=== PATIENT | female | born 1995 | race Hispanic/Latino ===

== ENCOUNTER → 2017-03-06 | Outpatient (CLI) | payer OTHER ==
--- NOTE | 2017-03-06 15:17 | REP ---
RIGHT FIRST DIGIT, FOUR VIEWS: There is no evidence of an acute fracture, dislocation or intrinsic bone disease. IMPRESSION: No fracture or dislocation. Signed by Chauncey Pavon MD 03/06/2017 03:19 P
== END ==
LOC: M LRY 13:04
PROVIDERS: ATTEND Nurse Practitioner Family
DX: S69.91XA Unspecified injury of right wrist, hand and finger(s), initial encounter (principal); W18.30XA Fall on same level, unspecified, initial encounter; Y92.009 Unspecified place in unspecified non-institutional (private) residence as the place of occurrence of the external cause

== ENCOUNTER → 2018-01-27 | Outpatient (REF) | payer OTHER ==
[2018-01-27 19:29] LABS: HCG, SERUM QUANTITATIVE 788 MIU/ML
[2018-01-28 10:12] LABS: RUBELLA IgG QUALITATIVE IMMUNE (IMMUNE)
[2018-01-28 10:13] LABS: HBsAg Prenatal NEGATIVE (NEGATIVE)
[2018-01-28 10:40] LABS: HEPATITIS C VIRUS ABY INDEX 0.2 INDEX (<0.8)
[2018-01-28 10:41] LABS: HIV 1&2 SCREEN CENTAUR NEGATIVE (NEGATIVE)
== END ==
LOC: M LAB REF 16:19
DX: O36.80X0 Pregnancy with inconclusive fetal viability, not applicable or unspecified (principal); Z32.01 Encounter for pregnancy test, result positive

== ENCOUNTER → 2018-02-26 | Outpatient (REF) | payer OTHER ==
[2018-02-26 13:21] LABS: HEMATOCRIT 36.4 % (36.0-47.0); HEMOGLOBIN 12.6 g/dl (12.0-15.5); MEAN CORPUSCULAR HEMOGLOBIN 30.7 pg (27.0-33.0); MEAN CORPUSCULAR HGB CONC 34.6 g/dl (32.0-36.5); MEAN CORPUSCULAR VOLUME 88.6 fl (80.0-96.0); PLATELET COUNT, AUTOMATED 204 10^3/uL (150-450); RED BLOOD COUNT 4.11 10^6/uL (4.00-5.40); RED CELL DISTRIBUTION WIDTH 12.4 % (11.5-14.5); WHITE BLOOD COUNT 7.7 10^3/uL (4.0-10.0)
[2018-02-26 14:08] LABS: HCG, SERUM QUANTITATIVE 114739 MIU/ML
== END ==
LOC: M LAB REF 13:04
DX: Z34.01 Encounter for supervision of normal first pregnancy, first trimester (principal)

== ENCOUNTER → 2018-06-25 | Outpatient (CLI) | payer OTHER ==
[2018-06-25 11:26] LABS: HEMATOCRIT 34.1 % (36.0-47.0); HEMOGLOBIN 11.2 g/dl (12.0-15.5); MEAN CORPUSCULAR HEMOGLOBIN 30.5 pg (27.0-33.0); MEAN CORPUSCULAR HGB CONC 32.8 g/dl (32.0-36.5); MEAN CORPUSCULAR VOLUME 92.9 fl (80.0-96.0); PLATELET COUNT, AUTOMATED 235 10^3/uL (150-450); RED BLOOD COUNT 3.67 10^6/uL (4.00-5.40); WHITE BLOOD COUNT 10.5 10^3/uL (4.0-10.0)
== END ==
LOC: M LAB 09:47
PROVIDERS: ATTEND Obstetrics & Gynecology
DX: Z34.02 Encounter for supervision of normal first pregnancy, second trimester (principal); Z3A.00 Weeks of gestation of pregnancy not specified

== ENCOUNTER → 2018-09-09 | Outpatient (REF) | payer OTHER | LOC: M LAB REF 12:45 | PROVIDERS: ATTEND Obstetrics & Gynecology | DX: Z34.03 Encounter for supervision of normal first pregnancy, third trimester (principal); Z3A.00 Weeks of gestation of pregnancy not specified ==

== ENCOUNTER 2018-09-28 18:05 | Inpatient (IN) | payer OTHER ==
[~2018-09-28] VITALS: Ht 157.5 cm; Wt 82.3 kg
[2018-09-28 18:49] VITALS: BP 124/73
[2018-09-28 20:13] VITALS: BP 119/77
[2018-09-28 22:19] VITALS: BP 137/81
[2018-09-28] MEDS ORDERED: LACTATED RINGER'S 1000 ML IV STA (22:57)
[2018-09-28] MEDS ORDERED: BUTORPHANOL 2 MG/ML INJ (J0595) IV ONE (23:15)
[2018-09-28] MEDS ORDERED: PROMETHAZINE INJ 25 MG/ML VIAL (J2550) IV ONE (23:15)
[2018-09-28 23:56] VITALS: BP 129/62
[2018-09-29] VITALS (61 sets, daily range): BP systolic 92–137; BP diastolic 49–79
[2018-09-29 00:19] LABS: HEMATOCRIT 30.2 % (36.0-47.0); HEMOGLOBIN 9.7 g/dl (12.0-15.5); MEAN CORPUSCULAR HEMOGLOBIN 27.3 pg (27.0-33.0); MEAN CORPUSCULAR HGB CONC 32.1 g/dl (32.0-36.5); MEAN CORPUSCULAR VOLUME 85.1 fl (80.0-96.0); PLATELET COUNT, AUTOMATED 244 10^3/uL (150-450); RED BLOOD COUNT 3.55 10^6/uL (4.00-5.40); WHITE BLOOD COUNT 13.4 10^3/uL (4.0-10.0)
[2018-09-29] MEDS: LR 1,000 ML IV SCH ×3 (02:00→20:58)
[2018-09-29] MEDS ORDERED: OXYTOCIN DRIP 30 UNITS in APPROPRIATE DILUENT 1 EA IV SCH ×2 (03:30→17:41)
[2018-09-29] MEDS ORDERED: FENTANYL 2MCG/ML ROPIVACAINE 0.2% IN 0.9% NACL 100ML IVBAG As Ordered ONE (03:33)
[2018-09-29] MEDS ORDERED: ePHEDrine SULFATE 25 MG/5 ML(5MG/ML) SYRINGE IV PRN (04:10)
[2018-09-29] MEDS ORDERED: diphenhydrAMINE INJ 50MG/ML VIAL (J1200) IV PRN ×2 (04:10→17:30)
[2018-09-29] MEDS ORDERED: LACTATED RINGER'S 1000 ML IV PRN (04:10)
[2018-09-29] MEDS ORDERED: NALOXONE INJ 0.4 MG/1 ML VIAL (J2310) IV PRN ×3 (04:10→17:30)
[2018-09-29] MEDS ORDERED: EPIDURAL COMMENT XX SCH (04:10)
[2018-09-29] MEDS ORDERED: EPIDURAL/PCA KEYS XX PRN (04:10)
[2018-09-29] MEDS ORDERED: REFRIGERATOR IV KEYS XX PRN (04:10)
[2018-09-29] MEDS ORDERED: ONDANSETRON 4MG/2ML VIAL (J2405) IV PRN ×4 (04:10→18:30)
[2018-09-29] MEDS ORDERED: ePHEDrine SULFATE 25 MG/5 ML(5MG/ML) SYRINGE As Ordered ONE (05:09)
[2018-09-29] MEDS: FENTANYL/ROPIVACAINE/NACL BAG 100 ML EPIDURAL SCH ×2 (07:00→13:46)
[2018-09-29] MEDS ORDERED: BICITRA 30ML SOLN UDC As Ordered ONE (16:36)
[2018-09-29] MEDS ORDERED: ceFAZolin 2 GM/D5W 50 ML IV BAG (J0690 PER 500MG) As Ordered ONE (16:37)
[2018-09-29] MEDS ORDERED: LIDOCAINE 2% W/EPIN INJ 20ML **PRES FREE As Ordered ONE ×2 (16:42→16:58)
[2018-09-29] MEDS ORDERED: BICITRA 30ML SOLN UDC PO ONE (16:45)
[2018-09-29] MEDS ORDERED: OXYTOCIN INJ 10 UNITS/ML VIAL (J2590) As Ordered ONE (16:58)
[2018-09-29] MEDS ORDERED: fentaNYL 100 MCG/2 ML INJECTION (J3010) As Ordered ONE (17:08)
[2018-09-29] MEDS ORDERED: PHENYLephrine HCL 500 MCG/5 ML (100MCG/ML) SYRINGE (J2370) As Ordered ONE (17:18)
[2018-09-29] MEDS ORDERED: MORPHINE PRES-FREE INJ 10 MG/10 ML VIAL (J2274) As Ordered ONE (17:24)
[2018-09-29 17:30] LABS: CORD GAS O2 SAT A 34.2 %; CORD GAS PCO2 A 43.2 mmHg; CORD GAS PH A 7.324 UNITS; CORD GAS PO2 A 17.8 mmHg; CORD GAS SBC A 19.5 MEQ/L; CORD GAS TCO2 A 23.3 MEQ/L
[2018-09-29] MEDS ORDERED: NALBUPHINE HCL 10 MG/ML AMP (J2300) IV PRN (17:30)
[2018-09-29] MEDS ORDERED: METOCLOPRAMIDE INJ 10MG/2ML VIAL (J2765) IV PRN ×2 (17:30→18:30)
[2018-09-29 17:34] LABS: CORD GAS ABE V -4.6; CORD GAS HCO3 V 19.6 MEQ/L; CORD GAS O2 SAT V 73.7 %; CORD GAS PCO2 V 34.7 mmHg; CORD GAS PH V 7.37 UNITS; CORD GAS PO2 V 32.4 mmHg; CORD GAS SBC V 20.1 MEQ/L; CORD GAS TCO2 V 20.7 MEQ/L
[2018-09-29] MEDS ORDERED: ONDANSETRON 4MG/2ML VIAL (J2405) As Ordered ONE (17:35)
[2018-09-29] MEDS ORDERED: KETOROLAC 60 MG/2 ML VIAL (J1885) As Ordered ONE (17:35)
[2018-09-29] MEDS ORDERED: MOM 30ML SUSPENSION UDC PO PRN (17:45)
[2018-09-29] MEDS ORDERED: PERCOCET 5MG/325MG TAB PO PRN ×2 (17:45)
[2018-09-29] MEDS ORDERED: MEASLES,MUMPS,RUBELLA VACCINE INJ (MMR-II) (90707) SC SCH (17:45)
[2018-09-29] MEDS ORDERED: RHOGAM 300 MCG (1500 IU) INJ (J2790) IM SCH (17:45)
--- NOTE | 2018-09-29 18:04 | HPE ---
DATE OF ADMISSION: 09/29/2018 Urban is a 23-year-old female, 1, para 0 with an estimated date of confinement (EDC) of 09/30/2018, estimated gestational age (EGA) 39-5/7 weeks gestation who presented to labor and delivery with complaints of contractions. Upon evaluation, she was found to be in early labor. She was observed in labor and delivery and progressed in labor. At this point a decision was made to admit the patient. Her record reviewed, which was essentially unremarkable. LABORATORIES : Blood type is O positive, rubella immune, hepatitis negative, HIV negative. GC/chlamydia negative. [id number] sugar testing was within normal limits. Her GBS is negative. PAST MEDICAL HISTORY: Denies. PAST SURGICAL HISTORY: Denies. SOCIAL HISTORY: She is . Denies any alcohol, drugs, or cigarette smoking. REVIEW OF SYSTEMS: Unremarkable. MEDICATIONS: vitamins ALLERGIES: No known drug allergies. PHYSICAL EXAMINATION: Mildly obese female in no acute distress. Abdomen: Soft, nontender, nondistended. Extremities: No clubbing, cyanosis, or edema. Vaginal exam: 3-4 cm dilated, 80% effaced, fetus at -3 station, vertex position. Tracing reviewed: Category 1 tracing. ASSESSMENT: Intrauterine at 39-5/7 weeks gestation in early labor. PLAN: Admit to labor and delivery. Routine labs sent. Pain management discussed. The patient up for an epidural. Will continue to monitor. Anticipate delivery.
[2018-09-29] MEDS ORDERED: oxyCODONE 5MG TAB PO PRN (18:30)
[2018-09-29] MEDS ORDERED: PROMETHAZINE INJ 25 MG/ML VIAL (J2550) IV PRN (18:30)
[2018-09-29] MEDS ORDERED: LR 1,000 ML IV SCH (18:30)
--- NOTE | 2018-09-29 19:19 | RO ---
DATE OF PROCEDURE: 09/29/2018 Lety is a 23-year-old female 1, para 0 who was admitted at 39-5/7 weeks gestation in early labor. She progressed to approximately 9 cm with a nonreassuring heart rate tracing and thick meconium. After extensive counseling, a decision was made to proceed with a primary section. Fetus also had significant molding of the head. PREOPERATIVE DIAGNOSES: 1. Term . 2. Nonreassuring heart rate tracing. 3. Thick meconium fluid. POSTOPERATIVE DIAGNOSES: 1. Term . 2. Nonreassuring heart rate tracing. 3. Thick meconium fluid. 4. Direct occiput posterior (OP) position. 5. Nuchal cord times one. PROCEDURE: 1. Primary low transverse section. SURGEON: Dr. Kalyan Whitehead LOBSTER CATCHER: Dr. Guille John ANESTHESIA: Epidural COMPLICATIONS: None. ESTIMATED BLOOD LOSS: 600 mL. FINDINGS: Live male in occiput posterior position with significant molding of the head, nuchal cord times one, scores 7 and 9, weight 6 pounds 13 ounces. Normal appearing placenta, ovaries and tube. DESCRIPTION OF PROCEDURE: After obtaining informed consent, the patient was taken to the operating room where epidural anesthetic was found to be adequate. She was draped and prepped in the usual sterile fashion in the supine position. At this point, a Pfannenstiel incision was made with the first knife. This was carried down to the fascia. Fascia was incised in a midline fashion and carried through laterally. The anterior and superior aspect of the fascia was then dissected off the rectus muscle, the peritoneum identified. Peritoneal cavity entered bluntly with the help of my clinical laboratory assistant, Dr. Maldonado. Mobius skin retractor was placed. A low transverse uterine incision was made. The infant was delivered in an atraumatic fashion. Nose and mouth bulb suctioned. Cord doubly clamped and cut, and the was handed over to the waiting warmer. Cord blood and cord gas were sent. Placenta removed manually. Uterus cleared of all clot and debris and uterine incision was then repaired in two separate layers of #0 Vicryl sutures. Pelvis copiously irrigated with normal saline and suctioned out. Attention turned to the peritoneum which was closed in a running fashion using #2-0 Vicryl. Fascia closed in two separate segments of #0 Vicryl sutures. All superficial bleeders were coagulated, and the skin was reapproximated in a subcuticular fashion using #3-0 Vicryl on a Trell. Steri-Strips placed. The patient tolerated procedure well. She was then transferred to recovery room in stable condition.
[2018-09-29] MEDS: DOCUSATE SODIUM 100 MG CAP PO SCH (20:58)
[2018-09-30] MEDS: ACETAMINOPHEN 500 MG TAB PO PRN ×3 (00:13→23:03)
[2018-09-30] MEDS: IBUPROFEN 800 MG TAB PO SCH ×3 (01:55→18:08)
[2018-09-30 02:00] VITALS: BP 106/58
[2018-09-30] MEDS: LR 1,000 ML IV SCH ×2 (04:40→12:21)
[2018-09-30 06:00] VITALS: BP 98/51
[2018-09-30 07:19] LABS: MEAN CORPUSCULAR HEMOGLOBIN 28.1 pg (27.0-33.0); MEAN CORPUSCULAR HGB CONC 31.4 g/dl (32.0-36.5); MEAN CORPUSCULAR VOLUME 89.4 fl (80.0-96.0); PLATELET COUNT, AUTOMATED 156 10^3/uL (150-450); RED BLOOD COUNT 2.35 10^6/uL (4.00-5.40); WHITE BLOOD COUNT 10.8 10^3/uL (4.0-10.0)
[2018-09-30 07:26] LABS: HEMOGLOBIN 6.6 g/dl (12.0-15.5)
[2018-09-30] MEDS: DOCUSATE SODIUM 100 MG CAP PO SCH ×2 (09:00→21:45)
[2018-09-30] MEDS: PRENATAL VITAMINS CHEWABLE TABLET PO SCH (09:01)
[2018-09-30 10:00] VITALS: BP 110/61
[2018-09-30 14:00] VITALS: BP 106/55
[2018-09-30 18:00] VITALS: BP 122/72
[2018-09-30 22:00] VITALS: BP 115/67
[2018-10-01 02:00] VITALS: BP 104/58
[2018-10-01] MEDS: IBUPROFEN 800 MG TAB PO SCH ×2 (02:24→10:16)
[2018-10-01 06:00] VITALS: BP 106/63
[2018-10-01 06:24] LABS: HEMATOCRIT 20.4 % (36.0-47.0); MEAN CORPUSCULAR HEMOGLOBIN 28.4 pg (27.0-33.0); MEAN CORPUSCULAR HGB CONC 31.4 g/dl (32.0-36.5); MEAN CORPUSCULAR VOLUME 90.7 fl (80.0-96.0); PLATELET COUNT, AUTOMATED 154 10^3/uL (150-450); RED BLOOD COUNT 2.25 10^6/uL (4.00-5.40); WHITE BLOOD COUNT 8.8 10^3/uL (4.0-10.0)
[2018-10-01 06:27] LABS: HEMOGLOBIN 6.4 g/dl (12.0-15.5)
[2018-10-01] MEDS: ACETAMINOPHEN 500 MG TAB PO PRN (07:47)
[2018-10-01] MEDS: DOCUSATE SODIUM 100 MG CAP PO SCH (10:17)
[2018-10-01] MEDS: PRENATAL VITAMINS CHEWABLE TABLET PO SCH (10:17)
== END 2018-10-01 15:20 | disposition home or self-care (01) | DRG 788 ==
LOC: M LDO 18:05 → M LDI 22:42 → M OBS 09-29 19:35
PROVIDERS: ADMIT Obstetrics & Gynecology; ATTEND Obstetrics & Gynecology
PROC: 10D00Z1 Extraction of Products of Conception, Low, Open Approach (ICD-10-PCS; principal; 2018-09-29 16:47)
DX: O69.81X0 Labor and delivery complicated by cord around neck, without compression, not applicable or unspecified (principal); Z3A.39 39 weeks gestation of pregnancy; Z37.0 Single live birth; O76 Abnormality in fetal heart rate and rhythm complicating labor and delivery; O77.0 Labor and delivery complicated by meconium in amniotic fluid; O99.214 Obesity complicating childbirth; O64.0XX0 Obstructed labor due to incomplete rotation of fetal head, not applicable or unspecified